=== PATIENT | male | born 1995 | race African-American/Black ===

== ENCOUNTER 2025-03-04 19:34 | Emergency (ER) | payer SELFPAY ==
[~2025-03-04] VITALS: Ht 172.7 cm; Wt 82.0 kg
[2025-03-04 20:11] VITALS: O2SAT 100
[2025-03-04] MEDS ORDERED: BO1 TP (20:44)
[2025-03-04] MEDS: LIDOCAINE HCL 1% 20ML VIAL INFIL ONE (20:45)
[2025-03-04] MEDS: BACITRACIN ZINC OINT UDPKT TOP ONE (20:45)
[2025-03-04] MEDS: ACETAMINOPHEN 500MG TABLET PO ONE (20:59)
[2025-03-04] MEDS: HYDROCODONE/ACETAMINOPHEN 5/325MG TABLET PO ONE (22:36)
[2025-03-04 22:38] VITALS: BP 110/62; PULSE 67; RESP 18; TEMP 36.9; O2SAT 100
== END 2025-03-04 22:39 | disposition home or self-care (01) ==
LOC: ER 19:34
DX: S01.81XA Laceration without foreign body of other part of head, initial encounter (principal); Z79.899 Other long term (current) drug therapy; X58.XXXA Exposure to other specified factors, initial encounter; Y93.89 Activity, other specified; Y92.89 Other specified places as the place of occurrence of the external cause; Y99.8 Other external cause status; S01.112A Laceration without foreign body of left eyelid and periocular area, initial encounter
CPT/HCPCS: 12015; 99283; J3490; Z7610